=== PATIENT | male | born 1960 | race Two or more races ===

== ENCOUNTER 2018-09-29 16:09 | Emergency (ER) | payer OTHER ==
[~2018-09-29] VITALS: Ht 177.8 cm; Wt 111.1 kg
== END 2018-09-29 19:01 | disposition home or self-care (01) ==
LOC: ER 16:09
DX: M79.672 Pain in left foot (principal)

== ENCOUNTER 2018-09-30 11:46 | Outpatient (CLI) | payer OTHER | END 2018-09-30 15:06 | disposition home or self-care (01) | LOC: MRI 11:46 | DX: M79.672 Pain in left foot (principal); M84.376A Stress fracture, unspecified foot, initial encounter for fracture | CPT/HCPCS: 73718 ==